=== PATIENT | female | born 1960 | race Asian ===

== ENCOUNTER 2018-01-21 14:06 | Outpatient (CLI) | payer BC | END 2018-01-21 14:07 | disposition home or self-care (01) | LOC: BICMAMMO 14:06 | PROVIDERS: ATTEND Obstetrics & Gynecology | DX: Z12.31 Encounter for screening mammogram for malignant neoplasm of breast (principal) | CPT/HCPCS: 77063; 77067 ==

== ENCOUNTER 2018-06-19 15:24 | Outpatient (CLI) | payer BC ==
--- NOTE | 2018-06-19 16:41 | ULT ---
THYROID SONOGRAM: 06/19/18 HISTORY: Thyroid mass. FINDINGS: Right thyroid lobe is 3.2 cm and has a normal appearance. Isthmus is 0.2 cm thickness. Along the left margin of the thyroid isthmus, an oval circumscribed slightly heterogeneous and hypoechoic nodule is 0.6 cm in length, smaller than the 1.3 cm on the previous exam. Left thyroid lobe is 3.5 cm. Tiny cysts centrally are 0.3 cm greatest diameter. No dominant solid mas s. IMPRESSION: Small solid and cystic nodules of the isthmus and left thyroid lobe as detailed above, less prominent than on the 2011 study. No new abnormalities. POS: [facility]
== END 2018-06-19 15:25 | disposition home or self-care (01) ==
LOC: SCSULT 15:24
PROVIDERS: ATTEND Family Medicine
DX: E04.2 Nontoxic multinodular goiter (principal)
CPT/HCPCS: 76536

== ENCOUNTER 2018-11-09 12:54 | Outpatient (CLI) | payer BC ==
--- NOTE | 2018-11-09 14:42 | ULT ---
Renal sonogram HISTORY: Right renal mass. Follow-up. COMPARISON: 02/28/2012. FINDINGS: Right kidney is 11.0 cm length on today's exam. The oval 0.7 cm hypoechoic lesion at the la teral cortex of the right kidney is unchanged in appearance from the prior study. No new masses. Tiny cyst at the inferior pole is stable. No hydronephrosis. Left kidney is 10.2 cm. No mass or hydronephrosis. Urinary bladder has a normal appearance. 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
== END 2018-11-09 12:55 | disposition home or self-care (01) ==
LOC: SCSULT 12:54
PROVIDERS: ATTEND Urology
DX: D17.71 Benign lipomatous neoplasm of kidney (principal)
CPT/HCPCS: 76770

== ENCOUNTER 2020-09-04 01:44 | Inpatient (IN) | payer BC ==
[2020-09-04 02:30] VITALS: BMI 21.2
[2020-09-04] MEDS ORDERED: HYDROcodone/Acetaminophen 5/325 mg Tablet PO PRN ×2 (02:40)
[2020-09-04] MEDS ORDERED: Morphine 4 MG/ML VIAL SLOW IVP PRN (02:41)
[2020-09-04] MEDS ORDERED: Sodium Chloride 0.9% 1,000 ML IV SCH (02:45)
[2020-09-04] MEDS ORDERED: Ondansetron PF 4 MG/2 ML Vial IVP PRN (02:45)
[2020-09-04] MEDS ORDERED: Acetaminophen 325 MG TAB PO PRN ×2 (02:45→08:19)
[2020-09-04] MEDS ORDERED: Ondansetron ODT 4 MG TAB SL PRN (02:45)
[2020-09-04] MEDS ORDERED: Zolpidem Tartrate 5 MG TAB PO SCH (04:00)
[2020-09-04 04:02] LABS: SARS-CoV-2 NAA Rapid Test Not Detected (NotDetected)
[2020-09-04] MEDS: Sodium Chloride 0.9% 1,000 ML IV SCH ×4 (04:14→23:29)
[2020-09-04 09:04] LABS: #Eosinphils 0.6 thou/uL (0.0-0.7); #Lymphocytes 1.7 thou/uL (1.20-3.40); #Monocytes 0.8 thou/uL (0.11-0.59); #Neutrophils 4.2 thou/uL (1.40-6.50); %Basophils 0.7 % (0.0-1.0); %Eosinophils 7.9 % (0.0-10.0); %Lymphocytes 23.5 % (21.0-51.0); %Neutrophils 56.9 % (42.0-75.0); Hemoglobin 12.2 g/dL (12.0-16.0); Mean Corpuscular Volume 94.4 fL (78.0-98.0); Mean Platelet Volume 7.5 fL (7.4-10.4); Platelet Count 219 thou/uL (130-400); RBC Distribution Width 11.5 % (11.5-14.5); Red Blood Cell (RBC) Count 3.69 mill/uL (4.20-5.40); White Blood Cell (WBC) Count 7.3 thou/uL (4.8-10.8)
[2020-09-04 09:25] LABS: ALT (SGPT) 11 U/L (8-55); AST (SGOT) 14 U/L (5-34); Albumin 3.6 g/dL (3.5-5.0); Alkaline Phosphatase 71 U/L (40-110); Anion Gap 12 mmol/L (10-20); BUN (Urea Nitrogen) 12 mg/dL (9.8-20.1); Bilirubin, Total 1.1 mg/dL (0.2-1.2); Calc. Creatinine Clearance 73 mL/min (70-130); Calcium 8.4 mg/dL (7.8-10.44); Carbon Dioxide 23 mmol/L (22-29); Chloride 108 mmol/L (98-107); Globulin 3.4 g/dL (2.4-3.5); Glucose 96 mg/dL (70-105); Potassium 3.8 mmol/L (3.5-5.1); Sodium 139 mmol/L (136-145)
[2020-09-04] MEDS: Senokot S 8.6-50 MG TAB PO SCH ×2 (12:01→21:08)
[2020-09-04 13:39] LABS: PTT 31.6 sec (22.9-36.1); Prothrombin Time 13.4 sec (12.0-14.7)
[2020-09-04] MEDS ORDERED: Levothyroxine Sodium 100 MCG TAB PO SCH (20:00)
[2020-09-04] MEDS: Zolpidem Tartrate 5 MG TAB PO PRN (21:08)
[2020-09-05] MEDS: Levothyroxine Sodium 100 MCG TAB PO SCH (05:34)
[2020-09-05] MEDS: Sodium Chloride 0.9% 1,000 ML IV SCH ×3 (06:30→18:51)
[2020-09-05 06:36] LABS: #Basophils 0.1 thou/uL (0.0-0.2); #Eosinphils 0.7 thou/uL (0.0-0.7); #Monocytes 0.9 thou/uL (0.11-0.59); #Neutrophils 3.8 thou/uL (1.40-6.50); %Basophils 0.9 % (0.0-1.0); %Eosinophils 9.2 % (0.0-10.0); %Lymphocytes 26.8 % (21.0-51.0); %Monocytes 11.8 % (0.0-10.0); %Neutrophils 51.3 % (42.0-75.0); Hemoglobin 11.7 g/dL (12.0-16.0); Mean Corpuscular HGB CONC 33.2 g/dL (32.0-36.0); Mean Corpuscular Hemoglobin 31.5 pg (27.0-31.0); Mean Corpuscular Volume 94.8 fL (78.0-98.0); Mean Platelet Volume 7.4 fL (7.4-10.4); Platelet Count 209 thou/uL (130-400); RBC Distribution Width 11.5 % (11.5-14.5); Red Blood Cell (RBC) Count 3.73 mill/uL (4.20-5.40); White Blood Cell (WBC) Count 7.3 thou/uL (4.8-10.8)
[2020-09-05 06:57] LABS: ALT (SGPT) 8 U/L (8-55); AST (SGOT) 14 U/L (5-34); Albumin 3.3 g/dL (3.5-5.0); Alkaline Phosphatase 64 U/L (40-110); Anion Gap 13 mmol/L (10-20); BUN (Urea Nitrogen) 8 mg/dL (9.8-20.1); Bilirubin, Total 0.8 mg/dL (0.2-1.2); Calc. Creatinine Clearance 76 mL/min (70-130); Calcium 8.4 mg/dL (7.8-10.44); Carbon Dioxide 21 mmol/L (22-29); Chloride 110 mmol/L (98-107); Globulin 3.2 g/dL (2.4-3.5); Glucose 85 mg/dL (70-105); Lipase 630 U/L (8-78); Potassium 3.8 mmol/L (3.5-5.1); Protein, Total 6.5 g/dL (6.0-8.3); Sodium 140 mmol/L (136-145)
[2020-09-05 06:59] LABS: ALT (SGPT) 7 U/L (8-55); AST (SGOT) 13 U/L (5-34); Albumin 3.4 g/dL (3.5-5.0); Alkaline Phosphatase 66 U/L (40-110); Bilirubin, Direct 0.3 mg/dL (0.1-0.3); Bilirubin, Total 0.8 mg/dL (0.2-1.2); Protein, Total 6.4 g/dL (6.0-8.3)
[2020-09-05] MEDS: Senokot S 8.6-50 MG TAB PO SCH ×2 (07:21→20:27)
[2020-09-05] MEDS ORDERED: Midazolam HCl 2 mg/2 ml Vial ONE (11:49)
[2020-09-05] MEDS ORDERED: Fentanyl 100 MCG/2 ML VIAL ONE ×2 (11:49→15:11)
[2020-09-05] MEDS ORDERED: Morphine 4 MG/ML VIAL ONE (11:49)
[2020-09-05] MEDS ORDERED: SUGAMMADEX SODIUM 200 MG/2 ML VIAL ONE (11:50)
[2020-09-05] MEDS ORDERED: Iothalamate Meglumine 60% 50 ML VIAL FS ONE (11:51)
[2020-09-05] MEDS ORDERED: Bupivacaine 0.25% HCL 30 ML VIAL ONE (11:51)
[2020-09-05] MEDS ORDERED: Lidocaine 1% w/Epinephrine 1:100K 20 ML VIAL ONE (11:51)
[2020-09-05] MEDS ORDERED: Dexamethasone 20 MG/5 ML VIAL ONE (12:19)
[2020-09-05] MEDS ORDERED: Lidocaine 1% PF 5 ML VIAL ONE (12:19)
[2020-09-05] MEDS ORDERED: Rocuronium Bromide 10 MG/ML (10ML VIAL) ONE (12:19)
[2020-09-05] MEDS ORDERED: Glycopyrrolate 0.2 MG/ML 5 ML SYRINGE ONE (12:19)
[2020-09-05] MEDS ORDERED: Ketorolac Tromethamine 30 MG/ML VIAL ONE (12:19)
[2020-09-05] MEDS ORDERED: PROPOFOL 200 MG/20 ML VIAL ONE (12:19)
[2020-09-05] MEDS ORDERED: Ondansetron PF 4 MG/2 ML Vial ONE (12:19)
[2020-09-05] MEDS ORDERED: traMADol HCl 50 MG TAB PO PRN ×2 (14:07)
[2020-09-05] MEDS: Acetaminophen 325 MG TAB PO SCH ×2 (16:15→21:09)
[2020-09-05] MEDS: Ketorolac Tromethamine 30 MG/ML VIAL IVP SCH ×2 (17:21→19:04)
[2020-09-05] MEDS ORDERED: Ondansetron PF 4 MG/2 ML Vial IVP PRN (20:51)
[2020-09-06] MEDS: Ketorolac Tromethamine 30 MG/ML VIAL IVP SCH ×2 (00:27→06:40)
[2020-09-06] MEDS: Zolpidem Tartrate 5 MG TAB PO PRN (00:31)
[2020-09-06] MEDS: Sodium Chloride 0.9% 1,000 ML IV SCH (03:33)
[2020-09-06] MEDS: Acetaminophen 325 MG TAB PO SCH ×2 (03:33→08:15)
[2020-09-06] MEDS: Levothyroxine Sodium 100 MCG TAB PO SCH (06:39)
[2020-09-06 07:04] LABS: #Basophils 0.1 thou/uL (0.0-0.2); #Lymphocytes 1.8 thou/uL (1.20-3.40); #Monocytes 0.6 thou/uL (0.11-0.59); #Neutrophils 4.3 thou/uL (1.40-6.50); %Basophils 1.1 % (0.0-1.0); %Eosinophils 0.5 % (0.0-10.0); %Lymphocytes 26.1 % (21.0-51.0); %Neutrophils 63.4 % (42.0-75.0); Hemoglobin 11.7 g/dL (12.0-16.0); Mean Corpuscular HGB CONC 34.1 g/dL (32.0-36.0); Mean Corpuscular Hemoglobin 32.1 pg (27.0-31.0); Mean Corpuscular Volume 94.1 fL (78.0-98.0); Mean Platelet Volume 7.2 fL (7.4-10.4); Platelet Count 218 thou/uL (130-400); RBC Distribution Width 11.4 % (11.5-14.5); Red Blood Cell (RBC) Count 3.64 mill/uL (4.20-5.40); White Blood Cell (WBC) Count 6.8 thou/uL (4.8-10.8)
[2020-09-06 07:14] LABS: ALT (SGPT) 14 U/L (8-55); ALT (SGPT) 16 U/L (8-55); AST (SGOT) 28 U/L (5-34); Albumin 3.3 g/dL (3.5-5.0); Albumin 3.4 g/dL (3.5-5.0); Alkaline Phosphatase 67 U/L (40-110); Alkaline Phosphatase 72 U/L (40-110); Anion Gap 13 mmol/L (10-20); BUN (Urea Nitrogen) 13 mg/dL (9.8-20.1); Bilirubin, Direct 0.2 mg/dL (0.1-0.3); Bilirubin, Total 0.5 mg/dL (0.2-1.2); Bilirubin, Total 0.6 mg/dL (0.2-1.2); Calc. Creatinine Clearance 72 mL/min (70-130); Calcium 8.8 mg/dL (7.8-10.44); Carbon Dioxide 21 mmol/L (22-29); Chloride 108 mmol/L (98-107); Globulin 3.3 g/dL (2.4-3.5); Glucose 111 mg/dL (70-105); Lipase 55 U/L (8-78); Potassium 4.9 mmol/L (3.5-5.1); Protein, Total 6.5 g/dL (6.0-8.3); Protein, Total 6.7 g/dL (6.0-8.3); Sodium 137 mmol/L (136-145)
[2020-09-06] MEDS: Senokot S 8.6-50 MG TAB PO SCH (08:17)
[2020-09-06 11:49] VITALS: BP 119/79; TEMP 98
[2020-09-06] MEDS ORDERED: Ibuprofen 200 MG TAB PO PRN (11:50)
== END 2020-09-06 14:44 | disposition home or self-care (01) | DRG 418 ==
LOC: T4-B 02:15 → OBSVTOIN 02:23
PROVIDERS: ADMIT Internal Medicine; ATTEND Internal Medicine
PROC: 0FT44ZZ Resection of Gallbladder, Percutaneous Endoscopic Approach (ICD-10-PCS; principal; 2020-09-05)
DX: K85.10 Biliary acute pancreatitis without necrosis or infection (principal); K80.00 Calculus of gallbladder with acute cholecystitis without obstruction; E03.9 Hypothyroidism, unspecified; K59.09 Other constipation; Z79.899 Other long term (current) drug therapy; Z20.822 Contact with and (suspected) exposure to COVID-19
CPT/HCPCS: 36415; 76705; 80053; 83690; 85025; 85610; 85730; 86850; 86900; 86901; 88304; J0690; J1100; J1885; J2250; J2270; J2405; J2704; J3010; Q9961; S0020; U0002

== ENCOUNTER 2020-09-28 08:19 | Outpatient (CLI) | payer BC | END 2020-09-28 08:20 | disposition home or self-care (01) | LOC: MRI 08:19 | PROVIDERS: ATTEND Internal Medicine Gastroenterology | DX: K85.90 Acute pancreatitis without necrosis or infection, unspecified (principal); K80.20 Calculus of gallbladder without cholecystitis without obstruction; R74.8 Abnormal levels of other serum enzymes; R10.10 Upper abdominal pain, unspecified; D18.03 Hemangioma of intra-abdominal structures | CPT/HCPCS: 74183 ==

== ENCOUNTER 2021-08-20 13:36 | Outpatient (CLI) | payer BC | END 2021-08-20 13:37 | disposition home or self-care (01) | LOC: BICMAMMO 13:36 | PROVIDERS: ATTEND Internal Medicine Rheumatology | DX: M81.0 Age-related osteoporosis without current pathological fracture (principal); M85.851 Other specified disorders of bone density and structure, right thigh; M85.852 Other specified disorders of bone density and structure, left thigh | CPT/HCPCS: 77080 ==

== ENCOUNTER 2023-02-12 15:32 | Outpatient (CLI) | payer BC | END 2023-02-12 15:33 | disposition home or self-care (01) | LOC: SCSRAD 15:32 | PROVIDERS: ATTEND Internal Medicine Rheumatology | DX: M79.651 Pain in right thigh (principal); M79.652 Pain in left thigh; M81.0 Age-related osteoporosis without current pathological fracture ==

== ENCOUNTER 2023-12-12 14:20 | Outpatient (CLI) | payer BC | END 2023-12-12 14:21 | disposition home or self-care (01) | LOC: BICMAMMO 14:20 | PROVIDERS: ATTEND Internal Medicine Rheumatology | DX: M81.0 Age-related osteoporosis without current pathological fracture (principal); M85.89 Other specified disorders of bone density and structure, multiple sites | CPT/HCPCS: 77080 ==